=== PATIENT | female | born 1995 | race Caucasian/White ===

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

== ENCOUNTER 2017-10-30 19:27 | Emergency (ER) | payer OTHER ==
[2017-10-30 19:36] VITALS: BP 136/81; BMI 40.2
[2017-10-30 21:15] LABS: BILIRUBIN,URINE NEGATIVE (NEGATIVE); BLOOD/HEMOGLOBIN,URINE NEGATIVE (NEGATIVE); GLUCOSE, URINE NEGATIVE (NEGATIVE); KETONES,URINE NEGATIVE (NEGATIVE); LEUKOCYTE ESTERASE ,URINE NEGATIVE (NEGATIVE); NITRITES,URINE NEGATIVE (NEGATIVE); PROTEIN,URINE NEGATIVE (NEGATIVE); UROBILINOGEN,URINE NORMAL (NORMAL)
[2017-10-30 21:15] LABS: BASOPHILS % (AUTO) 0.9 % (0.2-1.0); EOSINOPHILS # (AUTO) 0.3 x10^3/uL (0.0-0.2); EOSINOPHILS % (AUTO) 5.8 % (0.9-2.9); HEMATOCRIT 33.1 % (36.0-47.0); LYMPHOCYTES # (AUTO) 1.6 X10^3/uL (1.3-2.9); MEAN CORPUSCULAR HEMOGLOBIN 22.9 pg (27.0-34.0); MEAN CORPUSCULAR HGB CONC 33.1 g/dL (33.0-35.0); MEAN CORPUSCULAR VOLUME 69.1 fL (80.0-100.0); MEAN PLATELET VOLUME 7.5 fL (7.4-11.0); MONOCYTES # (AUTO) 0.4 x10^3/uL (0.3-0.8); MONOCYTES % (AUTO) 6.9 % (0.0-13.0); NEUTROPHILS # (AUTO) 2.7 x10^3/uL (2.2-4.8); NEUTROPHILS % (AUTO) 54.4 % (42.0-75.0); PLATELET COUNT 142 X10^3/uL (150.0-450.0); RED CELL DISTRIBUTION WIDTH 17.4 % (11.6-16.5); WHITE BLOOD COUNT 5.1 X10^3/uL (3.6-10.0)
[2017-10-30 21:16] LABS: APPEARANCE,URINE CLEAR (CLEAR); COLOR,URINE YELLOW (YELLOW)
--- NOTE | 2017-10-30 21:19 | DR.GENAD ---
HPI - PCP Primary Care Physician: christiano washburn - Complaint/Symptoms Chief Complaint Doctors Comments: Patient presents with a complaint of RLQ sharp pain of two days duration. She denies fever, vomiting, or diarrhea. She denies taking any medication for relief for pain. She denies a history of surgery or ovarian cyst. Her LMP was 08/06/17; this not really unusual for her. Chief Complaint:: RLQ PAIN - Source History Provided: Patient - Mode of Arrival Mode of Arrival: Ambulatory - Timing Onset of Chief Complaint: 10/28/17 PMH - PMH Past Medical History: Yes Past Medical History: Anemia Past Surgical History: Yes Surgical History: Tonsillectomy - Family History History of Family Medical Conditions: Yes Family Medical History: Diabetes Mellitus, Cancer, [place], Coronary Artery Disease, Hypertension - Social History Does patient currently use any type of tobacco product: No Have you used tobacco products in the last 12 months: No Type of Tobacco Use: None Does any household member use tobacco: No Alcohol Use: None Do you use any recreational Drugs:: No Lives With: Alone Lives Where: Home - infectious screening In the last 2 months have you had wt loss of >10#?: NO Have you had fever, night sweats or hemotysis?: No Have you traveled outside the country in the last 6 months?: No Isolation: Standard ROS - Review of Systems Eyes: No Symptoms Reported ENTM: No Symptoms Reported Respiratoy: No Symptoms Reported Cardiovascular: No Symptoms Reported Gastrointestinal/Abdominal: No Symptoms Reported Genitourinary: No Symptoms Reported Neurological: No Symptoms Reported Musculoskeletal: No Symptoms Reported Integumentary: No Symptoms Reported Hematologic/Lymphatic: No Symptoms Reported Endocrine: No Symptoms Reported Psychiatric: No Symptoms Reported All Other Systems: Reviewed and Negative PE - Vital Signs Vitals: Temperature 98.3 F Pulse Rate 89 Respiratory Rate 16 Blood Pressure 136/81 O2 Sat by Pulse Oximetry 99 - General Limitations: No Limitations General Appearance: Alert, In No Apparent Distress - Head Head Exam: Normal Inspection, Atraumatic - Eyes Eye exam: Normal Appearance, PERRL, EOMI - ENT ENT Exam: Normal Exam External Ear Exam: Normal External Inspection TM/Canal Exam: Bilateral Normal Nose Exam: Normal Nose Exam Mouth Exam: Normal Inspection Throat Exam: Normal Inspection - Neck Neck Exam: Normal Inspection - Chest Chest Inspection: Normal Inspection - Respiratory Respiratory Exam: Normal Lung Sounds Bilat Respiratory Exam: Bilateral Clear to Auscultation - Cardiovascular Cardiovascular Exam: Regular Rate - Abdominal Exam Abdominal Exam: Normal Inspection, Normal Bowel Sounds Abdominal Tenderness: negative: RUQ, RLQ, LUQ, LLQ, Epigastrium, Suprapubic, Diffuse, Mild, Moderate, Severe, Other - Extremities Extremities Exam: Normal Inspection, Full ROM - Back Back Exam: Normal Inspection, Full ROM - Neurologic Neurological Exam: Alert, Oriented X3, CN II-XII Intact - Psychiatric Psychiatric Exam: Normal Affect, Normal Mood - Skin Skin Exam: Warm, Dry, Intact Course - Reevaluation 1st: Improved ROR - Labs Reviewed Result Diagrams: 10/30/17 21:08 10/30/17 21:08 Laboratory: WBC 5.1 X10^3/uL (3.6-10.0) 10/30/17 21:08 RBC 4.80 X10^6/uL (3.5-5.4) 10/30/17 21:08 Hgb 11.0 g/dL (12.0-16.0) L 10/30/17 21:08 Hct 33.1 % (36.0-47.0) L 10/30/17 21:08 MCV 69.1 fL (80.0-100.0) L 10/30/17 21:08 MCH 22.9 pg (27.0-34.0) L 10/30/17 21:08 MCHC 33.1 g/dL (33.0-35.0) 10/30/17 21:08 RDW 17.4 % (11.6-16.5) H 10/30/17 21:08 Plt Count 142 X10^3/uL (150.0-450.0) L 10/30/17 21:08 Plt Count Comment Decreased (ADEQUATE) A 10/30/17 21:08 MPV 7.5 fL (7.4-11.0) 10/30/17 21:08 Neut % (Auto) 54.4 % (42.0-75.0) 10/30/17 21:08 Lymph % (Auto) 32.0 % (21.0-51.0) 10/30/17 21:08 [place] % (Auto) 6.9 % (0.0-13.0) 10/30/17 21:08 Eos % (Auto) 5.8 % (0.9-2.9) H 10/30/17 21:08 Baso % (Auto) 0.9 % (0.2-1.0) 10/30/17 21:08 Neut # (Auto) 2.7 x10^3/uL (2.2-4.8) 10/30/17 21:08 Lymph # (Auto) 1.6 X10^3/uL (1.3-2.9) 10/30/17 21:08 [place] # (Auto) 0.4 x10^3/uL (0.3-0.8) 10/30/17 21:08 Eos # (Auto) 0.3 x10^3/uL (0.0-0.2) H 10/30/17 21:08 Baso # (Auto) 0.0 X10^3/uL (0.0-0.1) 10/30/17 21:08 Absolute Nucleated RBC 0.0 /100WBC 10/30/17 21:08 Plt Morphology Comment Normal (NORMAL) 10/30/17 21:08 RBC Morphology Abnormal (NORMAL) A 10/30/17 21:08 Hypochromasia 1+ A 10/30/17 21:08 Anisocytosis 1+ A 10/30/17 21:08 Microcytosis 2+ A 10/30/17 21:08 Sodium 141 mmol/L (136-145) 10/30/17 21:08 Corrected Sodium TNP 10/30/17 21:08 Potassium 4.2 mmol/L (3.5-5.1) 10/30/17 21:08 Chloride 104 mmol/L (98-107) 10/30/17 21:08 Carbon Dioxide 29.4 mmol/L (21-32) 10/30/17 21:08 BUN 9 mg/dL (7-18) 10/30/17 21:08 Creatinine 1.11 mg/dL (0.55-1.02) H 10/30/17 21:08 Est GFR (MDRD) Af Amer > 60 (>60) 10/30/17 21:08 Est GFR (MDRD) Non-Af > 60 (>60) 10/30/17 21:08 Glucose 95 mg/dL (65-99) 10/30/17 21:08 Calcium 8.4 mg/dL (8.5-10.1) L 10/30/17 21:08 Corrected Calcium TNP 10/30/17 21:08 Total Bilirubin 0.30 mg/dL (0.2-1.0) 10/30/17 21:08 AST 26 Units/L (15-37) 10/30/17 21:08 ALT 37 Units/L (12-78) 10/30/17 21:08 Alkaline Phosphatase 101 Units/L (46-116) 10/30/17 21:08 C-Reactive Protein 7.30 mg/L (0-3.0) H 10/30/17 21:08 Total Protein 7.5 g/dL (6.4-8.2) 10/30/17 21:08 Albumin 3.5 g/dL (3.4-5.0) 10/30/17 21:08 Globulin 4.0 g/dL (2.5-4.5) 10/30/17 21:08 Albumin/Globulin Ratio 0.9 Ratio (1.1-2.1) L 10/30/17 21:08 Specimen Type Clean catch urine 10/30/17 21:05 Urine Color Yellow (YELLOW) 10/30/17 21:05 Urine Appearance Clear (CLEAR) 10/30/17 21:05 Urine pH 6.0 (5.0 - 8.0) 10/30/17 21:05 Ur Specific Mccoy 1.020 (1.000-1.030) 10/30/17 21:05 Urine Protein Negative (NEGATIVE) 10/30/17 21:05 Urine Glucose (UA) Negative (NEGATIVE) 10/30/17 21:05 Urine Ketones Negative (NEGATIVE) 10/30/17 21:05 Urine Occult Blood Negative (NEGATIVE) 10/30/17 21:05 Urine Nitrite Negative (NEGATIVE) 10/30/17 21:05 Urine Bilirubin Negative (NEGATIVE) 10/30/17 21:05 Urine Urobilinogen Normal (NORMAL) 10/30/17 21:05 Ur Leukocyte Esterase Negative (NEGATIVE) 10/30/17 21:05 - XRAY XRAY Interpreted by: Radiologist - Diagnosis Discharge Problem: RLQ abdominal pain - Discharge Plan Condition: Stable - Follow ups/Referrals Follow ups/Referrals: NFD,None [Primary Care Provider] - 3 days - Instructions
[2017-10-30 21:23] LABS: ANISOCYTOSIS 1+; HYPOCHROMASIA 1+; MICROCYTOSIS 2+; PLATELET MORPHOLOGY COMMENT NORMAL (NORMAL)
[2017-10-30 21:28] LABS: ALANINE AMINOTRANSFERASE 37 Units/L (12-78); ALBUMIN 3.5 g/dL (3.4-5.0); ALKALINE PHOSPHATASE 101 Units/L (46-116); ASPARTATE AMINO TRANSFERASE 26 Units/L (15-37); BLOOD UREA NITROGEN 9 mg/dL (7-18); CALCIUM 8.4 mg/dL (8.5-10.1); CARBON DIOXIDE 29.4 mmol/L (21-32); CHLORIDE 104 mmol/L (98-107); CREATININE 1.11 mg/dL (0.55-1.02); SODIUM 141 mmol/L (136-145); TOTAL PROTEIN 7.5 g/dL (6.4-8.2); eGFR BLACK RACES > 60 (>60); eGFR NON BLACK RACES > 60 (>60)
== END 2017-10-30 23:35 | disposition home or self-care (01) ==
LOC: ER 19:39
DX: R10.31 Right lower quadrant pain (principal)
CPT/HCPCS: 36415; 80053; 81003; 85025; 86140; 99282; 99283